=== PATIENT | male | born 1970 | race Hispanic/Latino ===

== ENCOUNTER → 2017-01-31 | Outpatient (CLI) | payer SELFPAY ==
[2017-01-31 08:20] LABS: HEMOGLOBIN A1C 5.16 % (4.2-6.0)
[2017-01-31 08:34] LABS: BLOOD UREA NITROGEN 7 mg/dL (7-22); BUN/CREATININE RATIO 8.75 (6-20); CHOL/HDL RATIO 2.93 RATIO (0-4.0); EST GLOMERULAR FILTRATION > 60 (>60 ml/min/1.73m(2)); HDL CHOLESTEROL 47 mg/dL (40-150); SERUM ALBUMIN 3.7 g/dL (3.5-4.8); SERUM CHOLESTEROL 138 mg/dL (120-200); URIC ACID 5.1 mg/dl (3.8-8.5)
== END ==
LOC: LAB 08:00
PROVIDERS: ATTEND Nurse Practitioner Family
DX: M10.9 Gout, unspecified (principal); I10 Essential (primary) hypertension; R73.09 Other abnormal glucose; R60.0 Localized edema; Z83.3 Family history of diabetes mellitus
CPT/HCPCS: 36415; 80053; 80061; 83036; 84550